=== PATIENT | male | born 1960 | race Caucasian/White ===

== ENCOUNTER 2016-09-05 12:16 | Emergency (ER) | payer SELFPAY ==
[~2016-09-05] VITALS: Ht 177.8 cm; Wt 61.4 kg
[~2016-09-05 12:16] MED LIST: NOHOMEMEDS; WELLBUTRIN XL300 MG PO
[2016-09-05 12:58] VITALS: BP 107/71
== END 2016-09-05 12:50 | disposition left against medical advice (07) ==
LOC: EXP 12:16 → EME 12:16 → EXP 12:50
DX: K08.89 Other specified disorders of teeth and supporting structures (principal); Z53.21 Procedure and treatment not carried out due to patient leaving prior to being seen by health care provider

== ENCOUNTER 2016-12-09 15:15 | Emergency (ER) | payer SELFPAY ==
[~2016-12-09] VITALS: Ht 177.8 cm; Wt 62.4 kg
[2016-12-09 16:09] LABS: MCH 29.9 PG (29.0-34.0); MCHC 34.6 G/DL (30.0-36.0); MCV 86.5 FL (86-99); MEAN PLAT.VOLUME 9.6 uM^3 (9.0-12.4); PLATELET COUNT 219 K/uL (156-360); RBC DIS.WIDTH-CV 12.2 % (11.8-14.6); RBC DIS.WIDTH-SD 38.7 % (39-53); RED BLOOD COUNT 5.32 M/uL (4.00-5.50); WHITE BLOOD COUNT 7.1 K/uL (4.1-10.2)
[2016-12-09 16:17] LABS: CHLORIDE 103 mEq/L (99-109); POTASSIUM 4.3 mEq/L (3.7-5.4); SODIUM 138 mEq/L (136-147)
[2016-12-09 16:19] LABS: GLUCOSE 75 mg/dL (70-99)
[2016-12-09 16:20] LABS: ANION GAP 10 MEQ/L (2-14)
[2016-12-09 16:21] LABS: TOTAL BILIRUBIN 0.5 mg/dL (0.0-1.0)
[2016-12-09 16:23] LABS: ALKALINE PHOSPHATASE 95 IU/L (3-129); GFR ESTIMATE (CALCULATED) > 59 mL/min/
[2016-12-09 16:24] LABS: UREA NITROGEN (BUN) 8 mg/dL (9-23)
[2016-12-09 16:26] LABS: LIPASE 21 U/L (1.0-51.0)
[2016-12-09 16:46] LABS: ADD MIUA? YES; BILIRUBIN NEGATIVE; BLOOD SMALL; COLOR COLORLESS ((YELLOW)); GLUCOSE (STRIP) NEGATIVE; KETONES NEGATIVE; LEUKOCYTES NEGATIVE; NITRITE NEGATIVE; PROTEIN (STRIP) NEGATIVE; SPECIFIC GRAVITY 1.002 (1.000-1.030); UROBILINOGEN 0.2 MG/DL (0.2-1.0)
[2016-12-09 16:55] LABS: BACTERIA NONE SEEN /HPF; EPITHELIAL CELLS NONE SEEN /HPF; MUCUS NONE SEEN /LPF; RED BLOOD CELLS 0-5 /HPF (0-5); UCUL ADDED? NO; WHITE BLOOD CELLS NONE SEEN /HPF (0-5)
[2016-12-09] MEDS ORDERED: MOTRIN800 MG PO (19:06)
[2016-12-09] MEDS ORDERED: FLOMAX0.4 MG PO (19:07)
[2016-12-09 19:30] VITALS: BP 130/79
== END 2016-12-09 19:31 | disposition home or self-care (01) ==
LOC: EME 15:15
DX: R10.31 Right lower quadrant pain (principal); N20.0 Calculus of kidney; Z87.442 Personal history of urinary calculi; F17.200 Nicotine dependence, unspecified, uncomplicated
CPT/HCPCS: 74177; 80053; 81003; 83690; 85027; 99281; 99284; J1885; J7030